=== PATIENT | female | born 1985 | race African-American/Black ===

== ENCOUNTER 2016-07-02 17:18 | Emergency (ER) | payer OTHER ==
[~2016-07-02] VITALS: Ht 160 cm; Wt 90.7 kg
[~2016-07-02 17:18] MED LIST: BACTRIM DS TAB1 EACH; HYDROCODON-ACE1 EAC7; IBUPROFEN 600600 M1; IBUPROFEN 600600 M1 PO; IRON PO; MIRALAX17 G1 PO; NORCO 5-325 TA1 EACH PO; NORFLEX100 MG PO; PRENATABS RX T1 EACH PO; SYNTHROID175 MCG PO; ULTRAM 50MG TAB50 MG PO
[2016-07-02 17:59] LABS: URINE BILIRUBIN NEGATIVE (Negative); URINE BLOOD 2+ (Negative); URINE COLOR YELLOW; URINE GLUCOSE-RANDOM* NEGATIVE (Negative); URINE KETONES TRACE (Negative); URINE LEUKOCYTES-REFLEX NEGATIVE (Negative); URINE PROTEIN (DIPSTICK) NEGATIVE (Negative); URINE SPECIFIC GRAVITY 1.025 (1.003-1.035); URINE UROBILINOGEN 0.2 E.U./dl (0.2-1.0)
[2016-07-02 18:01] LABS: ABSOLUTE NEUTROPHILS 9.7 thou/uL (1.4-8.2); BASOPHILS 0.4 % (0.0-2.0); EOSINOPHILS 1.1 % (0.0-3.0); HEMATOCRIT 38.7 % (37.0-47.0); HEMOGLOBIN 12.8 gm/dL (12.0-15.0); LYMPHOCYTES 13.7 % (24.0-44.0); MCH 27.4 pg (26.0-34.0); MCV 83.1 fL (80.0-100.0); MONOCYTES 2.4 % (1.0-8.0); PLATELET COUNT 312 thou/uL (150-400); POLYS 82.4 % (36.0-66.0); RBC 4.66 mil/uL (4.20-5.00); RDW 16.2 % (10.5-14.5); WBC 11.8 thou/uL (4.0-11.0)
[2016-07-02 18:06] LABS: MANUAL DIFF NO
[2016-07-02 18:11] LABS: CASTS None Seen /LPF (None Seen); CRYSTALS None Seen /LPF (None Seen); SQUAMOUS 4-10 Moderate /LPF (0-3); URINE RBC 0-2 Rare /HPF (0-2); URINE WBC-REFLEX 0-5 Rare /HPF (0-5)
[2016-07-02 18:12] LABS: CALCIUM 9.3 mg/dL (8.5-10.1); CREATININE 0.8 mg/dL (0.6-1.3); POTASSIUM 3.3 mmol/L (3.5-5.1)
[2016-07-02 18:18] LABS: ALBUMIN 3.6 g/dL (3.4-5.0); TOTAL BILIRUBIN 0.4 mg/dL (<0.1-1.0); TOTAL PROTEIN 8.6 g/dL (6.4-8.2)
[2016-07-02] MEDS ORDERED: ONDANSETRON HCL4 M2 PO (18:35)
== END 2016-07-02 18:40 | disposition home or self-care (01) ==
LOC: ER 17:18
PROVIDERS: Physician Assistant
DX: R11.2 Nausea with vomiting, unspecified (principal); R19.7 Diarrhea, unspecified; E87.6 Hypokalemia; F10.99 Alcohol use, unspecified with unspecified alcohol-induced disorder; E89.0 Postprocedural hypothyroidism

== ENCOUNTER 2017-02-13 10:02 | Emergency (ER) | payer OTHER ==
[~2017-02-13] VITALS: Ht 160 cm; Wt 97.5 kg
[~2017-02-13 10:02] MED LIST changes: +ONDANSETRON HCL4 M2 PO
[2017-02-13] MEDS ORDERED: FLEXERIL PO (11:19)
== END 2017-02-13 11:26 | disposition home or self-care (01) ==
LOC: ER 10:02
DX: M54.5 Low back pain (principal); M54.6 Pain in thoracic spine; F10.99 Alcohol use, unspecified with unspecified alcohol-induced disorder; Z86.2 Personal history of diseases of the blood and blood-forming organs and certain disorders involving the immune mechanism; Z87.891 Personal history of nicotine dependence; V89.0XXA Person injured in unspecified motor-vehicle accident, nontraffic, initial encounter; Y93.I9 Activity, other involving external motion; Y92.481 Parking lot as the place of occurrence of the external cause; Y99.8 Other external cause status

== ENCOUNTER 2018-10-12 16:26 | Emergency (ER) | payer OTHER ==
[~2018-10-12] VITALS: Ht 160 cm; Wt 97.5 kg
[~2018-10-12 16:26] MED LIST changes: +FLEXERIL PO; +IBUPROFEN 200200 M1 PO; +MOBIC15 MG PO; +VOLTAREN GEL 1100 G2 TOP
[2018-10-12] MEDS ORDERED: SPIRONOLACTONE25 MG PO (16:37)
[2018-10-12] MEDS ORDERED: NUVARING VAGIN1 EACH VAG (16:38)
[2018-10-12] MEDS ORDERED: MOBIC7.5 MG PO (17:21)
[2018-10-12 17:40] VITALS: BP 130/88
== END 2018-10-12 17:41 | disposition home or self-care (01) ==
LOC: ER 16:26
DX: S43.491A Other sprain of right shoulder joint, initial encounter (principal); Z87.891 Personal history of nicotine dependence; Z86.2 Personal history of diseases of the blood and blood-forming organs and certain disorders involving the immune mechanism; Z90.89 Acquired absence of other organs; X50.1XXA Overexertion from prolonged static or awkward postures, initial encounter; Y92.89 Other specified places as the place of occurrence of the external cause; Y93.89 Activity, other specified; Y99.8 Other external cause status

== ENCOUNTER 2019-01-26 20:39 | Emergency (ER) | payer OTHER ==
[~2019-01-26] VITALS: Ht 160 cm; Wt 95.3 kg
[~2019-01-26 20:39] MED LIST changes: +MOBIC7.5 MG PO; +NUVARING VAGIN1 EACH VAG; +SPIRONOLACTONE25 MG PO
[2019-01-26] MEDS ORDERED: HUMIRA PEN40 MG/0.4 SUBQ (21:02)
[2019-01-26] MEDS ORDERED: ULTRAM 50MG TAB50 MG PO (22:19)
[2019-01-26 22:27] VITALS: BP 139/95
== END 2019-01-26 22:40 | disposition home or self-care (01) ==
LOC: ER 20:39
DX: S93.401A Sprain of unspecified ligament of right ankle, initial encounter (principal); Z86.2 Personal history of diseases of the blood and blood-forming organs and certain disorders involving the immune mechanism; Z98.890 Other specified postprocedural states; Z90.89 Acquired absence of other organs; Z87.891 Personal history of nicotine dependence; W01.0XXA Fall on same level from slipping, tripping and stumbling without subsequent striking against object, initial encounter; Y93.68 Activity, volleyball (beach) (court); Y92.89 Other specified places as the place of occurrence of the external cause; Y99.8 Other external cause status

== ENCOUNTER 2020-01-18 18:26 | Emergency (ER) | payer OTHER ==
[~2020-01-18] VITALS: Ht 160 cm; Wt 99.8 kg
[~2020-01-18 18:26] MED LIST changes: +HUMIRA PEN40 MG/0.4 SUBQ
[2020-01-18] MEDS ORDERED: NORCO 5-325 TA1 EAC2 PO (19:52)
[2020-01-18 20:08] VITALS: BP 148/94
== END 2020-01-18 20:10 | disposition home or self-care (01) ==
LOC: ER 18:26
DX: M25.532 Pain in left wrist (principal); Z90.89 Acquired absence of other organs; Z79.899 Other long term (current) drug therapy; Z87.891 Personal history of nicotine dependence; Z86.2 Personal history of diseases of the blood and blood-forming organs and certain disorders involving the immune mechanism

== ENCOUNTER 2020-03-06 21:32 | Emergency (ER) | payer OTHER ==
[~2020-03-06] VITALS: Ht 160 cm; Wt 90.7 kg
[~2020-03-06 21:32] MED LIST changes: +NORCO 5-325 TA1 EAC2 PO
[2020-03-07] MEDS ORDERED: TRAMADOL 50 MG50 MG PO (00:10)
[2020-03-07] MEDS ORDERED: NORFLEX100 MG PO (00:10)
[2020-03-07 00:25] VITALS: BP 150/100
== END 2020-03-07 00:27 | disposition home or self-care (01) ==
LOC: ER 21:32
DX: S20.211A Contusion of right front wall of thorax, initial encounter (principal); S50.01XA Contusion of right elbow, initial encounter; S40.011A Contusion of right shoulder, initial encounter; S16.1XXA Strain of muscle, fascia and tendon at neck level, initial encounter; Z79.899 Other long term (current) drug therapy; Z87.891 Personal history of nicotine dependence; W10.9XXA Fall (on) (from) unspecified stairs and steps, initial encounter; Y93.89 Activity, other specified; Y92.89 Other specified places as the place of occurrence of the external cause; Y99.8 Other external cause status

== ENCOUNTER 2021-01-12 15:34 | Emergency (ER) | payer OTHER ==
[~2021-01-12] VITALS: Ht 160 cm; Wt 95.3 kg
[~2021-01-12 15:34] MED LIST changes: +TRAMADOL 50 MG50 MG PO
[2021-01-12 16:32] VITALS: BP 139/94
== END 2021-01-12 16:33 | disposition home or self-care (01) ==
LOC: ER 15:34
DX: Z20.822 Contact with and (suspected) exposure to COVID-19 (principal); Z90.89 Acquired absence of other organs; Z79.899 Other long term (current) drug therapy; Z87.891 Personal history of nicotine dependence